=== PATIENT | female | born 1940 | race Caucasian/White ===

== ENCOUNTER → 2020-03-14 | Outpatient (CLI) | payer MEDICARE, OTHER ==
--- NOTE | 2020-03-14 09:28 | Diagnostic Imaging Report ---
EXAM: Renal Ultrasound INDICATION: ^[id number] ^[id number] ^CHRONINC KIDNEY DISEASE STAGE III COMPARISON: None TECHNIQUE: Transverse and longitudinal images of the kidneys and bladder were obtained. FINDINGS: Right Kidney: Size: 8.4 cm Echogenicity: Mildly increased Parenchymal thickness: Normal Collecting system: No hydronephrosis Stones: None Cyst/Mass: None Left Kidney: Size: 10.2 cm Echogenicity: Increased Parenchymal thickness: Normal Collecting system: No hydronephrosis Stones: None Cyst/Mass: 2.1 x 1.6 x 2.2 cm exophytic anechoic lesion with a single thin internal septation and calcification. Bladder: Unremarkable. Right and left ureteral jets are identified. IMPRESSION: Mildly increased renal cortical echogenicity in keeping with medical renal disease. No hydronephrosis. Mildly complex left renal cyst should be assessed for stability by follow-up renal ultrasound in one year. Signed by: Dr. Ino Zabala M.D. on 03/14/2020 9:25 AM
== END ==
LOC: US 07:42
PROVIDERS: ATTEND Internal Medicine Nephrology
DX: N18.3 Chronic kidney disease, stage 3 (moderate) (principal)
CPT/HCPCS: 76770; 76857

== ENCOUNTER 2022-12-25 20:36 | Inpatient (IN) | payer MEDICARE, OTHER ==
[~2022-12-25] VITALS: Ht 162.6 cm; Wt 59.0 kg
[~2022-12-25 20:36] MED LIST: HYDROMORPHONE 2MG/ML 2 MG/ML ML ONE; ROPIVACAINE 0.5% 5 MG/ML 30 ML SDV ONE
[2022-12-25 21:01] LABS: BASOPHILS % 0.3 % (0.0-1.0); EOSINOPHILS # (AUTO) 0.1 (0.0-0.4); HEMATOCRIT 29.6 % (34.2-44.1); HEMOGLOBIN 9.2 g/dL (12.0-16.0); LYMPHOCYTES % 13.4 % (18.0-39.1); MEAN CORPUSCULAR HEMOGLOBIN 27.8 pg (28-32); MEAN CORPUSCULAR HGB CONC 31.1 g/dL (31-35); MEAN CORPUSCULAR VOLUME 89.4 fL (81-99); MONOCYTES % 7.1 % (4.4-11.3); NEUTROPHILS # (AUTO) 11.4 (2.1-6.9); NEUTROPHILS % 77.6 % (38.7-80.0); PLATELET COUNT 402 x10e3/uL (140-360); RED BLOOD COUNT 3.31 x10e6/uL (3.6-5.1); RED CELL DISTRIBUTION WIDTH 14.1 % (11.7-14.4)
[2022-12-25] MEDS ORDERED: ONDANSETRON HCL INJ 2MG/ML 2ML 2 MG/ML VIAL IV STA (21:02)
[2022-12-25 21:09] LABS: INR 0.96
[2022-12-25 21:10] LABS: PARTIAL THROMBOPLASTIN TIME 30.2 seconds (23.8-35.5)
[2022-12-25] MEDS ORDERED: Morphine 4mg INJECTION 4 MG/ML INJ IV ONE (21:15)
[2022-12-25 21:19] LABS: ALBUMIN/GLOBULIN RATIO 0.8 (0.8-2.0); ANION GAP 15.1 mmol/L (8-16); CALCIUM 9.1 mg/dL (8.4-10.2); CREATININE, SERUM 1.21 mg/dL (0.57-1.11); POTASSIUM 4.1 mmol/L (3.5-5.1)
[2022-12-25] MEDS ORDERED: SODIUM CHLORIDE 0.9% 1000ML 1,000 ML IV SCH (23:00)
[2022-12-25] MEDS ORDERED: SODIUM CHLORIDE FLUSH 10 ML SYR INJ PRN (23:00)
[2022-12-25] MEDS ORDERED: HYDROCODONE/APAP 5MG-325MG TAB PO ONE (23:15)
[2022-12-25] MEDS ORDERED: ONDANSETRON HCL INJ 2MG/ML 2ML 2 MG/ML VIAL IV PRN (23:15)
[2022-12-26] VITALS (9 sets, daily range): BP systolic 110–162; BP diastolic 68–80
[2022-12-26] MEDS: HYDROCODONE/APAP 5MG-325MG TAB PO PRN ×4 (01:19→22:58)
[2022-12-26] MEDS ORDERED: REFRESH TEARS15 ML (02:31)
[2022-12-26] MEDS ORDERED: SYNTHROID75 MCG PO (02:31)
[2022-12-26] MEDS: Morphine 4mg INJECTION 4 MG/ML INJ IV PRN ×3 (03:45→17:52)
[2022-12-26] MEDS: ONDANSETRON HCL INJ 2MG/ML 2ML 2 MG/ML VIAL IV PRN ×2 (03:45→13:06)
[2022-12-26 05:29] LABS: BASOPHILS % 0.2 % (0.0-1.0); EOSINOPHILS % 0.3 % (0.0-6.0); HEMATOCRIT 25.8 % (34.2-44.1); HEMOGLOBIN 8.3 g/dL (12.0-16.0); LYMPHOCYTES # (AUTO) 1.4 (1.0-3.2); LYMPHOCYTES % 10.4 % (18.0-39.1); MEAN CORPUSCULAR HEMOGLOBIN 27.7 pg (28-32); MEAN CORPUSCULAR HGB CONC 32.2 g/dL (31-35); MONOCYTES # (AUTO) 0.8 (0.2-0.8); MONOCYTES % 6.1 % (4.4-11.3); NEUTROPHILS # (AUTO) 11.1 (2.1-6.9); NEUTROPHILS % 82.6 % (38.7-80.0); PLATELET COUNT 313 x10e3/uL (140-360)
[2022-12-26 06:00] LABS: ALBUMIN 2.5 g/dL (3.5-5.0); ALBUMIN/GLOBULIN RATIO 0.7 (0.8-2.0); ANION GAP 10.5 mmol/L (8-16); CALCIUM 8.6 mg/dL (8.4-10.2); CREATININE, SERUM 1.03 mg/dL (0.57-1.11); POTASSIUM 4.5 mmol/L (3.5-5.1)
[2022-12-26] MEDS: METOPROLOL TARTRATE 25 MG TAB PO SCH ×2 (09:00→21:00)
[2022-12-26 10:35] LABS: CLARITY,URINE SL CLOUDY (CLEAR); COLOR,URINE YELLOW (YELLOW); KETONES,URINE NEGATIVE (NEGATIVE); LEUKOCYTE ESTERASE ,URINE SMALL (NEGATIVE); NITRITE,URINE NEGATIVE (NEGATIVE); PROTEIN,URINE DIPSTICK NEGATIVE (NEGATIVE); URINE UROBILINOGEN 0.2 mg/dL (0.2 - 1)
[2022-12-26 10:58] LABS: WBC,URINE (MAN) >50 /HPF (0-5)
[2022-12-26 10:59] LABS: BACTERIA,URINE MODERATE /HPF; EPITHELIAL CELLS,URINE MODERATE /LPF; TRANSITIONAL EPI CELLS,URINE FEW
[2022-12-26] MEDS ORDERED: SODIUM CHLORIDE 0.9% 250ML 250 ML ONE (15:36)
[2022-12-26] MEDS ORDERED: ARTIFICIAL TEARS (OPTH) 15 ML BTL OU PRN (18:15)
[2022-12-26] MEDS ORDERED: CEPACOL SORE THROAT LOZENGES PO PRN (18:15)
[2022-12-27] VITALS (8 sets, daily range): BP systolic 101–134; BP diastolic 53–73
[2022-12-27 04:54] LABS: BASOPHILS # (AUTO) 0.1 (0.0-0.1); BASOPHILS % 0.5 % (0.0-1.0); EOSINOPHILS # (AUTO) 0.5 (0.0-0.4); EOSINOPHILS % 4.6 % (0.0-6.0); HEMATOCRIT 29.7 % (34.2-44.1); HEMOGLOBIN 9.2 g/dL (12.0-16.0); LYMPHOCYTES # (AUTO) 1.4 (1.0-3.2); LYMPHOCYTES % 14.5 % (18.0-39.1); MEAN CORPUSCULAR HEMOGLOBIN 27.5 pg (28-32); MEAN CORPUSCULAR VOLUME 88.7 fL (81-99); MONOCYTES # (AUTO) 0.7 (0.2-0.8); MONOCYTES % 7.6 % (4.4-11.3); NEUTROPHILS % 72.5 % (38.7-80.0); PLATELET COUNT 302 x10e3/uL (140-360); RED BLOOD COUNT 3.35 x10e6/uL (3.6-5.1); RED CELL DISTRIBUTION WIDTH 13.7 % (11.7-14.4)
[2022-12-27] MEDS: LEVOTHYROXINE SODIUM 75 MCG TAB PO SCH (05:51)
[2022-12-27] MEDS: HYDROCODONE/APAP 5MG-325MG TAB PO PRN ×3 (05:52→19:27)
[2022-12-27] MEDS: METOPROLOL TARTRATE 25 MG TAB PO SCH ×2 (09:12→21:46)
[2022-12-27] MEDS ORDERED: ENOXAPARIN 30 MG/0.3 ML SYR SC ONE (12:15)
[2022-12-27] MEDS ORDERED: ONDANSETRON HCL INJ 2MG/ML 2ML 2 MG/ML VIAL ONE (12:54)
[2022-12-27] MEDS ORDERED: DEXAMETHASONE SOD PHOS INJ 4 MG/ML SDV ONE (12:54)
[2022-12-27] MEDS ORDERED: PROPOFOL IV EMULSION 10 MG/ML 20 ML VIAL ONE (12:54)
[2022-12-27] MEDS ORDERED: POVIDONE IODINE 0.05% 0.05 % ML PO ONE (12:54)
[2022-12-27] MEDS ORDERED: METOCLOPRAMIDE HCL 10 MG/2ML VIAL ONE (12:54)
[2022-12-27] MEDS ORDERED: SEVOFLURANE INHAL SOLN 250 ML PEN BTL ONE (12:54)
[2022-12-27] MEDS ORDERED: EPINEPHRINE HCL 1:1000 1ML 1 MG/ML AMP ONE (12:54)
[2022-12-27] MEDS ORDERED: LIDOCAINE HCL 2% LOCAL INJ 5 ML SDV VIAL INJ ONE (12:54)
[2022-12-27] MEDS ORDERED: KETOROLAC TROMETHAMINE 30 MG/ML VIAL ONE (12:54)
[2022-12-28] MEDS: SODIUM CHLORIDE 0.9% 1000ML 1,000 ML IV SCH ×3 (00:07→12:30)
[2022-12-28 04:00] VITALS: BP 121/72
[2022-12-28] MEDS: LEVOTHYROXINE SODIUM 75 MCG TAB PO SCH (06:18)
[2022-12-28 08:00] VITALS: BP 121/72
[2022-12-28 08:15] VITALS: BP 155/70
[2022-12-28] MEDS: METOPROLOL TARTRATE 25 MG TAB PO SCH ×2 (08:19→20:50)
[2022-12-28] MEDS ORDERED: ONDANSETRON HCL INJ 2MG/ML 2ML 2 MG/ML VIAL IV PRN (12:15)
[2022-12-28] MEDS ORDERED: NALOXONE HCL INJ 0.4 MG/ML AMP IV PRN (12:15)
[2022-12-28] MEDS ORDERED: ACETAMINOPHEN 1000 MG/100 ML IV PRN (12:15)
[2022-12-28] MEDS ORDERED: HYDROMORPHONE 0.2MG/ML-SOD CHL 30ML PCA SYRINGE IV PRN (12:15)
[2022-12-28] MEDS ORDERED: DIPHENHYDRAMINE HCL INJ 50 MG/ML VIAL IV PRN (12:15)
[2022-12-28] MEDS ORDERED: HYDROMORPHONE 0.2MG/ML-SOD CHL 30ML PCA SYRINGE IV ONE (12:30)
[2022-12-28 16:29] VITALS: BP 109/73
[2022-12-28 20:00] VITALS: BP 104/68
[2022-12-29] VITALS (7 sets, daily range): BP systolic 110–144; BP diastolic 70–82
[2022-12-29] MEDS: SODIUM CHLORIDE 0.9% 1000ML 1,000 ML IV SCH ×5 (00:33→16:48)
[2022-12-29] MEDS: LEVOTHYROXINE SODIUM 75 MCG TAB PO SCH (05:16)
[2022-12-29 05:25] LABS: BASOPHILS % 0.2 % (0.0-1.0); EOSINOPHILS % 0.1 % (0.0-6.0); HEMATOCRIT 26.1 % (34.2-44.1); HEMOGLOBIN 8.1 g/dL (12.0-16.0); LYMPHOCYTES # (AUTO) 1.2 (1.0-3.2); LYMPHOCYTES % 8.7 % (18.0-39.1); MEAN CORPUSCULAR HEMOGLOBIN 27.2 pg (28-32); MEAN CORPUSCULAR VOLUME 87.6 fL (81-99); MONOCYTES % 7.3 % (4.4-11.3); NEUTROPHILS # (AUTO) 11.4 (2.1-6.9); PLATELET COUNT 295 x10e3/uL (140-360); RED BLOOD COUNT 2.98 x10e6/uL (3.6-5.1); RED CELL DISTRIBUTION WIDTH 13.7 % (11.7-14.4)
[2022-12-29 05:44] LABS: ANION GAP 13.7 mmol/L (8-16); CALCIUM 8.3 mg/dL (8.4-10.2); CREATININE, SERUM 1.06 mg/dL (0.57-1.11); POTASSIUM 4.7 mmol/L (3.5-5.1)
[2022-12-29] MEDS: RIVAROXABAN 10 MG TABLET PO SCH ×2 (09:21→16:44)
[2022-12-29] MEDS: METOPROLOL TARTRATE 25 MG TAB PO SCH ×2 (09:24→21:00)
[2022-12-29] MEDS ORDERED: ONDANSETRON HCL 4 MG ORAL DISINTEGRATING TAB PO PRN (13:45)
[2022-12-29 14:37] LABS: HEMATOCRIT 28.2 % (34.2-44.1); HEMOGLOBIN 8.7 g/dL (12.0-16.0)
[2022-12-29] MEDS ORDERED: POLYETHYLENE GLYCOL 3350 17 GM PACK PO PRN (18:30)
[2022-12-29] MEDS ORDERED: PANTOPRAZOLE SOD 40 MG TABEC PO ONE (18:50)
[2022-12-29] MEDS: DOCUSATE SODIUM LIQD 100 MG/10 ML UDC NG SCH (21:13)
[2022-12-30] VITALS: BP 133/76
[2022-12-30 04:00] VITALS: BP 132/73
[2022-12-30] MEDS: SODIUM CHLORIDE 0.9% 1000ML 1,000 ML IV SCH (05:31)
[2022-12-30] MEDS: LEVOTHYROXINE SODIUM 75 MCG TAB PO SCH (05:31)
[2022-12-30 05:46] LABS: BASOPHILS # (AUTO) 0.1 (0.0-0.1); BASOPHILS % 0.6 % (0.0-1.0); EOSINOPHILS # (AUTO) 0.5 (0.0-0.4); HEMOGLOBIN 7.9 g/dL (12.0-16.0); LYMPHOCYTES # (AUTO) 2.1 (1.0-3.2); LYMPHOCYTES % 22.4 % (18.0-39.1); MEAN CORPUSCULAR HEMOGLOBIN 27.1 pg (28-32); MEAN CORPUSCULAR HGB CONC 30.4 g/dL (31-35); MONOCYTES # (AUTO) 0.9 (0.2-0.8); NEUTROPHILS # (AUTO) 5.9 (2.1-6.9); NEUTROPHILS % 62.6 % (38.7-80.0); PLATELET COUNT 317 x10e3/uL (140-360); RED BLOOD COUNT 2.92 x10e6/uL (3.6-5.1); RED CELL DISTRIBUTION WIDTH 14.1 % (11.7-14.4)
[2022-12-30 06:08] LABS: ANION GAP 12.1 mmol/L (8-16); CALCIUM 7.9 mg/dL (8.4-10.2); CREATININE, SERUM 0.84 mg/dL (0.57-1.11); MAGNESIUM 1.9 MG/DL (1.3-2.1); PHOSPHORUS 1.8 MG/DL (2.3-4.7); POTASSIUM 4.1 mmol/L (3.5-5.1)
[2022-12-30] MEDS ORDERED: PANTOPRAZOLE SOD 40 MG TABEC PO SCH (07:30)
[2022-12-30 07:48] VITALS: BP 134/79
[2022-12-30 08:00] VITALS: BP 134/79
[2022-12-30] MEDS ORDERED: SODIUM PHOSPHATE IN 0.9 % NACL 15 MMOL in SODIUM CHLORIDE 0.9% 250ML 250 ML IV ONE ×2 (09:00)
[2022-12-30] MEDS: DOCUSATE SODIUM LIQD 100 MG/10 ML UDC NG SCH (09:10)
[2022-12-30] MEDS: METOPROLOL TARTRATE 25 MG TAB PO SCH (09:11)
[2022-12-30 11:45] VITALS: BP 128/72
== END 2022-12-30 12:46 | DRG 481 ==
LOC: ER 20:45 → ERHOLD 22:51 → MED/SURG 23:36
PROVIDERS: ADMIT Internal Medicine; ATTEND Internal Medicine
PROC: 0QS634Z Reposition Right Upper Femur with Internal Fixation Device, Percutaneous Approach (ICD-10-PCS; principal; 2022-12-25)
DX: S72.141A Displaced intertrochanteric fracture of right femur, initial encounter for closed fracture (principal); N39.0 Urinary tract infection, site not specified; W19.XXXA Unspecified fall, initial encounter; Y93.9 Activity, unspecified; Y92.009 Unspecified place in unspecified non-institutional (private) residence as the place of occurrence of the external cause; G93.32 Myalgic encephalomyelitis/chronic fatigue syndrome; U09.9 Post COVID-19 condition, unspecified; E78.5 Hyperlipidemia, unspecified; Z86.16 Personal history of COVID-19; Z20.822 Contact with and (suspected) exposure to COVID-19; E03.9 Hypothyroidism, unspecified
CPT/HCPCS: 36415; 71045; 72170; 76000; 80048; 80053; 81001; 83735; 84100; 85014; 85018; 85025; 85610; 85730; 87086; 93005; 93306; 94799; 99252; 99284; C1713; J0171; J0690; J0696; J1100; J1650; J1885; J2001; J2270; J2405; J2765; J2795; J7030; J7050

== ENCOUNTER 2023-04-07 16:57 | Outpatient (RCR) | payer MEDICARE, OTHER ==
[~2023-04-07 16:57] MED LIST changes: -HYDROMORPHONE 2MG/ML 2 MG/ML ML ONE; +REFRESH TEARS15 ML; -ROPIVACAINE 0.5% 5 MG/ML 30 ML SDV ONE; +SYNTHROID75 MCG PO
== END 2023-04-08 ==
LOC: PT 16:57
PROVIDERS: ATTEND Specialist
DX: S72.141A Displaced intertrochanteric fracture of right femur, initial encounter for closed fracture (principal)

== ENCOUNTER → 2023-05-08 | Outpatient (RCR) | payer MEDICARE, OTHER | LOC: PT 04-09 07:42 | PROVIDERS: ATTEND Specialist | DX: S72.141A Displaced intertrochanteric fracture of right femur, initial encounter for closed fracture (principal) ==